=== PATIENT | male | born 1970 | race Caucasian/White ===

== ENCOUNTER 2019-01-18 13:35 | Emergency (ER) | payer SELFPAY ==
--- NOTE | 2019-01-18 15:00 | EDPHYS ---
Physician Documentation [facility] Name: Zenon Liu Age: 48 yrs Sex: Male : 1970 Arrival Date: 01/18/2019 Time: 13:35 Bed 15 Private MD: ED Physician Jason Wharton HPI: 01/18 14:53 This 48 yrs old Male presents to ER via Ambulatory with complaints of Sore cp Throat. 14:53 The patient presents with sore throat. The patient describes throat pain as constant. cp Onset: The symptoms/episode began/occurred 2 day(s) ago. 14:53 Associated signs and symptoms: Pertinent positives: cough, Pertinent negatives cp diarrhea, earache, fever, flu-like symptoms, headache, vomiting. Historical: - Allergies: 13:43 No Known Allergies; aa5 - Home Meds: 13:43 None [Active]; aa5 - PMHx: 13:43 Hypertension; aa5 - PSHx: 13:43 None; aa5 - Immunization history:: Flu vaccine is not up to date. - Social history:: Smoking status: Patient uses tobacco products, smokes one-half pack cigarettes per day. - Ebola Screening: : No symptoms or risks identified at this time. ROS: 14:54 Constitutional: Negative for body aches, chills, fever, poor PO intake. cp 14:54 Eyes: Negative for injury, pain, redness, and discharge. cp 14:54 ENT: Positive for sore throat, Negative for drainage from ear(s), ear pain, difficulty swallowing, difficulty handling secretions. 14:54 Neck: Negative for pain with movement, pain at rest, stiffness. 14:54 Cardiovascular: Negative for chest pain. 14:54 Respiratory: Positive for cough, Negative for wheezing. 14:54 Abdomen/GI: Negative for abdominal pain, vomiting, diarrhea, constipation. 14:54 Skin: Negative for cellulitis, rash. 14:54 Neuro: Negative for altered mental status, headache. 14:54 All other systems are negative. Exam: 14:54 Head/Face: Normocephalic, atraumatic. cp 14:54 Constitutional: The patient appears in no acute distress, alert, awake, non-toxic, well developed, well nourished. 14:54 Eyes: Periorbital structures: appear normal, Conjunctiva: normal, no exudate, no injection, Lids and lashes: appear normal, bilaterally. 14:54 ENT: External ear(s): are unremarkable, Ear canal(s): are normal, clear, TM's: bulging, is not appreciated, bilaterally, dullness, bilaterally, erythema, is not appreciated, bilaterally, Nose: is normal, Mouth: Lips: moist, Oral mucosa: pink and intact, moist, abscess, is not appreciated, drooling, is not appreciated, Posterior pharynx: Airway: no evidence of obstruction, patent, Tonsils: with erythema, no enlargement, Uvula: edematous, erythema, swelling, that is mild, erythema, that is marked, exudate, that is mild, Voice: is hoarse. 14:54 Neck: ROM/movement: is normal, is supple, no range of motions limitations, no meningismus, no nuchal rigidity. 14:54 Chest/axilla: Inspection: normal. 14:54 Cardiovascular: Rate: normal. 14:54 Respiratory: the patient does not display signs of respiratory distress, Respirations: normal. Vital Signs: 13:43 BP 180 / 106; Pulse 74; Resp 18 S; Temp 98.2(TE); Pulse Ox 98% on R/A; Weight 88.45 kg aa5 (R); Height 5 ft. 11 in. (180.34 cm) (R); Pain 6/10; 13:43 Body Mass Index 27.20 (88.45 kg, 180.34 cm) aa5 MDM: 14:39 Patient medically screened. 14:59 Data reviewed: vital signs, nurses notes, lab test result(s), and as a result, I will cp discharge patient. 14:59 Counseling: I had a detailed discussion with the patient and/or guardian regarding: the cp historical points, exam findings, and any diagnostic results supporting the discharge/admit diagnosis, the presence of at least one elevated blood pressure reading (>120/80) during this emergency department visit, lab results, the need for outpatient follow up, a family practitioner, to return to the emergency department if symptoms worsen or persist or if there are any questions or concerns that arise at home. Response to treatment: the patient's symptoms have mildly improved after treatment. 01/18 14:23 Order name: Strep jl7 01/18 14:59 Order name: Throat Culture EDOR Administered Medications: 15:00 Drug: GI Cocktail without - (Maalox Suspension 30 ml, Lidocaine Liquid 2 % 15 jl7 ml) Route: PO; 15:15 Follow up: Response: No adverse reaction; Pain is decreased jl7 15:05 Drug: Augmentin 875 mg Route: PO; jl7 15:15 Follow up: Response: No adverse reaction jl7 Disposition: 01/19 09:11 Co-signature as Attending Physician, Jason Wharton MD I agree with the assessment and sheeba plan of care. Disposition: 01/18/19 14:59 Discharged to Home. Impression: Acute pharyngitis - uvulitis. - Condition is Stable. - Discharge Instructions: Uvulitis. - Prescriptions for Augmentin 875- 125 mg Oral Tablet - take 1 tablet by ORAL route every 12 hours for 10 days; 20 tablet. Ibuprofen 800 mg Oral Tablet - take 1 tablet by ORAL route every 8 hours As needed take with food; 30 tablet. - Medication Reconciliation Form, Thank You Letter, Antibiotic Education, Prescription Opioid Use, Work release form form. - Follow up: Private Physician; When: 2 - 3 days; Reason: Worsening of condition. - Problem is new. - Symptoms have improved. Signatures: Dispatcher [employer] [facility] Jason Wharton MD MD cha Calderon, Audri, RN RN aa5 Jason Jackson PA PA cp Leal, Jahala RN RN jl7 Corrections: (The following items were deleted from the chart) 01/18 15:16 14:59 01/18/2019 14:59 Discharged to Home. Impression: Acute pharyngitis - uvulitis. jl7 Condition is Stable. Forms are Medication Reconciliation Form, Thank You Letter, Antibiotic Education, Prescription Opioid Use. Follow up: Private Physician; When: 2 - 3 days; Reason: Worsening of condition. Problem is new. Symptoms have improved. cp
--- NOTE | 2019-01-18 15:00 | ER ---
Nurse's Notes [facility] Name: Zenon Liu Age: 48 yrs Sex: Male : 1970 Arrival Date: 01/18/2019 Time: 13:35 Bed 15 Private MD: Diagnosis: Acute pharyngitis-uvulitis Presentation: 01/18 13:42 Presenting complaint: Patient states: sore throat that began Saturday. When asked about aa5 taking blood pressure medication pt states "I've been out of my medication". Transition of care: patient was not received from another setting of care. Onset of symptoms was January 2019. Risk Assessment: Do you want to hurt yourself or someone else? Patient reports no desire to harm self or others. Initial Sepsis Screen: Does the patient meet any 2 criteria? No. Patient's initial sepsis screen is negative. Does the patient have a suspected source of infection? No. Patient's initial sepsis screen is negative. Care prior to arrival: None. 13:42 Method Of Arrival: Ambulatory aa5 13:42 Acuity: JULIAN 4 aa5 Historical: - Allergies: 13:43 No Known Allergies; aa5 - Home Meds: 13:43 None [Active]; aa5 - PMHx: 13:43 Hypertension; aa5 - PSHx: 13:43 None; aa5 - Immunization history:: Flu vaccine is not up to date. - Social history:: Smoking status: Patient uses tobacco products, smokes one-half pack cigarettes per day. - Ebola Screening: : No symptoms or risks identified at this time. Screenin:25 Abuse screen: Denies threats or abuse. Denies injuries from another. Nutritional jl7 screening: No deficits noted. Tuberculosis screening: No symptoms or risk factors identified. Fall Risk None identified. Assessment: 14:25 General: Appears in no apparent distress. uncomfortable, Behavior is calm, cooperative, jl7 appropriate for age. Pain: Complains of pain in sore throat. Neuro: Level of Consciousness is awake, alert, obeys commands, Oriented to person, place, time, situation. Cardiovascular: Patient's skin is warm and dry. Respiratory: Airway is patent Respiratory effort is even, unlabored, Respiratory pattern is regular, symmetrical, Breath sounds are clear bilaterally. EENT: Throat is reddened has patchy exudate. Derm: Skin is pink, warm \\T\\ dry. Vital Signs: 13:43 BP 180 / 106; Pulse 74; Resp 18 S; Temp 98.2(TE); Pulse Ox 98% on R/A; Weight 88.45 kg aa5 (R); Height 5 ft. 11 in. (180.34 cm) (R); Pain 6/10; 13:43 Body Mass Index 27.20 (88.45 kg, 180.34 cm) aa5 ED Course: 13:35 Patient arrived in ED. as 13:42 Triage completed. aa5 13:42 Arm band placed on. aa5 14:23 Jose Zacarias, RN is Primary Nurse. jl7 14:25 Patient has correct armband on for positive identification. Bed in low position. Call jl7 light in reach. Side rails up X 1. 14:25 Strep swab sent to lab. jl7 14:39 Jason Jackson PA is PHCP. cp 14:39 Jason Wharton MD is Attending Physician. cp 15:15 No provider procedures requiring assistance completed. Patient did not have IV access jl7 during this emergency room visit. Administered Medications: 15:00 Drug: GI Cocktail without - (Maalox Suspension 30 ml, Lidocaine Liquid 2 % 15 jl7 ml) Route: PO; 15:15 Follow up: Response: No adverse reaction; Pain is decreased jl7 15:05 Drug: Augmentin 875 mg Route: PO; jl7 15:15 Follow up: Response: No adverse reaction jl7 Outcome: 14:59 Discharge ordered by MD. cp 15:15 Discharged to home ambulatory. jl7 15:15 Condition: stable 15:15 Discharge instructions given to patient, family, Instructed on discharge instructions, follow up and referral plans. medication usage, Demonstrated understanding of instructions, follow-up care, medications, Prescriptions given X 2. 15:16 Patient left the ED. jl7 Signatures: Anayeli Lane Audri RN RN aa5 Jason Jackson PA PA cp Jose Zacarias RN RN jl7 Corrections: (The following items were deleted from the chart) 13:44 13:42 Presenting complaint: Patient states: sore throat that began Saturday aa5 aa5
[2019-01-18] MEDS ORDERED: LIDOCAINE VISCOUS 2% SOLN 15 ML UDC ONE (15:09)
[2019-01-18] MEDS ORDERED: AMOX/K CLAV 875 MG TAB ONE (15:10)
== END 2019-01-18 15:16 | disposition home or self-care (01) ==
LOC: ER 13:35
DX: K12.2 Cellulitis and abscess of mouth (principal); I10 Essential (primary) hypertension; F17.210 Nicotine dependence, cigarettes, uncomplicated
CPT/HCPCS: 87070; 87081; 99283

== ENCOUNTER 2019-03-04 06:17 | Emergency (ER) | payer SELFPAY ==
--- NOTE | 2019-03-04 07:18 | EDPHYS ---
Physician Documentation [facility] Name: Zenon Liu Age: 48 yrs Sex: Male : 1970 Arrival Date: 03/04/2019 Time: 06:20 Bed 6 Private MD: DEYA Physician Jason Wharton HPI: 03/04 07:08 This 48 yrs old Male presents to ER via Ambulatory with complaints of Facial sheeba Swelling, Toothache. 07:08 The patient presents with broken tooth/teeth, lost tooth/teeth, pain, redness, sheeba swelling. The problem is located in the right buccal mucosa and upper right third molar (#1). Onset: The symptoms/episode began/occurred 1 week(s) ago. Duration: The symptoms are continuous, and are steadily getting worse. Modifying factors: The symptoms are alleviated by nothing, the symptoms are aggravated by chewing, talking. Associated signs and symptoms: The patient has no apparent associated signs or symptoms. Severity of symptoms: At their worst the symptoms were mild, in the emergency department the symptoms are unchanged. The patient has experienced similar episodes in the past, several times. Historical: - Allergies: 06:32 No Known Allergies; lp1 - Home Meds: 06:32 None [Active]; lp1 - PMHx: 06:32 Hypertension; lp1 - PSHx: 06:32 None; lp1 - Immunization history:: Adult Immunizations up to date. - Social history:: Smoking status: Patient uses tobacco products, smokes one pack cigarettes per day. - Ebola Screening: : No symptoms or risks identified at this time. - Family history:: not pertinent. ROS: 07:08 Constitutional: Negative for fever, chills, and weight loss, Eyes: Negative for injury, sheeba pain, redness, and discharge, Neck: Negative for injury, pain, and swelling, Cardiovascular: Negative for chest pain, palpitations, and edema, Respiratory: Negative for shortness of breath, cough, wheezing, and pleuritic chest pain, Abdomen/GI: Negative for abdominal pain, nausea, vomiting, diarrhea, and constipation, Back: Negative for injury and pain, : Negative for injury, bleeding, discharge, and swelling, MS/Extremity: Negative for injury and deformity, Skin: Negative for injury, rash, and discoloration, Neuro: Negative for headache, weakness, numbness, tingling, and seizure, Psych: Negative for depression, anxiety, suicide ideation, homicidal ideation, and hallucinations, Allergy/Immunology: Negative for hives, rash, and allergies, Endocrine: Negative for neck swelling, polydipsia, polyuria, polyphagia, and marked weight changes, Hematologic/Lymphatic: Negative for swollen nodes, abnormal bleeding, and unusual bruising. 07:08 ENT: Positive for dental pain, Teeth pain Exam: 07:08 Constitutional: This is a well developed, well nourished patient who is awake, alert, sheeba and in no acute distress. Eyes: Pupils equal round and reactive to light, extra-ocular motions intact. Lids and lashes normal. Conjunctiva and sclera are non-icteric and not injected. Cornea within normal limits. Periorbital areas with no swelling, redness, or edema. ENT: Nares patent. No nasal discharge, no septal abnormalities noted. Tympanic membranes are normal and external auditory canals are clear. Oropharynx with no redness, swelling, or masses, exudates, or evidence of obstruction, uvula midline. Mucous membranes moist. Neck: Trachea midline, no thyromegaly or masses palpated, and no cervical lymphadenopathy. Supple, full range of motion without nuchal rigidity, or vertebral point tenderness. No Meningismus. Chest/axilla: Normal chest wall appearance and motion. Nontender with no deformity. No lesions are appreciated. Cardiovascular: Regular rate and rhythm with a normal S1 and S2. No gallops, murmurs, or rubs. Normal PMI, no JVD. No pulse deficits. Respiratory: Lungs have equal breath sounds bilaterally, clear to auscultation and percussion. No rales, rhonchi or wheezes noted. No increased work of breathing, no retractions or nasal flaring. Abdomen/GI: Soft, non-tender, with normal bowel sounds. No distension or tympany. No guarding or rebound. No evidence of tenderness throughout. Back: No spinal tenderness. No costovertebral tenderness. Full range of motion. Skin: Warm, dry with normal turgor. Normal color with no rashes, no lesions, and no evidence of cellulitis. MS/ Extremity: Pulses equal, no cyanosis. Neurovascular intact. Full, normal range of motion. Neuro: Awake and alert, GCS 15, oriented to person, place, time, and situation. Cranial nerves II-XII grossly intact. Motor strength 5/5 in all extremities. Sensory grossly intact. Cerebellar exam normal. Normal gait. Psych: Awake, alert, with orientation to person, place and time. Behavior, mood, and affect are within normal limits. 07:08 Head/face: Noted is erythema, swelling, tenderness, of the upper right third molar and upper right second molar. Vital Signs: 06:30 BP 172 / 112; Pulse 84; Resp 18; Temp 97.6(O); Pulse Ox 98% on R/A; Weight 86.18 kg; lp1 Height 5 ft. 11 in. (180.34 cm); Pain 9/10; 07:20 BP 167 / 89; Pulse 72; Resp 17; Pulse Ox 98% on R/A; Pain 7/10; sg 06:30 Body Mass Index 26.50 (86.18 kg, 180.34 cm) lp1 MDM: 06:32 Patient medically screened. [facility] 07:12 Data reviewed: vital signs, nurses notes. [facility] Administered Medications: 07:14 Drug: Clindamycin 300 mg Route: PO; 07:20 Follow up: Response: No adverse reaction 07:14 Drug: [place] 10 mg-325 mg 1 tabs Route: PO; sg 07:20 Follow up: Response: No adverse reaction Disposition: 03/04/19 07:17 Discharged to Home. Impression: Dental caries, Dental caries, unspecified. - Condition is Stable. - Discharge Instructions: Dental Abscess, Dental Caries, Adult, Dental Pain, Dental Pain, [id number]. - Prescriptions for Clindamycin HCl 300 mg Oral Capsule - take 1 capsule by ORAL route every 6 hours for 10 days; 40 capsule. Tylenol- Codeine #3 300-30 mg Oral Tablet - take 2 tablet by ORAL route every 6 hours As needed; 30 tablet. - Work release form, Medication Reconciliation Form, Thank You Letter, Antibiotic Education, Prescription Opioid Use form. - Follow up: Private Physician; When: 2 - 3 days; Reason: Recheck today's complaints, Continuance of care, Re-evaluation by your physician. - Problem is new. - Symptoms have improved. Signatures: Tadeo Ngo RN RN Jason Wharton MD MD cha Pena, Laura, RN RN lp1 Corrections: (The following items were deleted from the chart) 07:29 07:17 03/04/2019 07:17 Discharged to Home. Impression: Dental caries; Dental caries, sg unspecified. Condition is Stable. Forms are Work release form, Medication Reconciliation Form, Thank You Letter, Antibiotic Education, Prescription Opioid Use. Follow up: Private Physician; When: 2 - 3 days; Reason: Recheck today's complaints, Continuance of care, Re-evaluation by your physician. Problem is new. Symptoms have improved. sheeba
--- NOTE | 2019-03-04 07:18 | ER ---
Nurse's Notes [facility] Name: Zenon Liu Age: 48 yrs Sex: Male : 1970 Arrival Date: 03/04/2019 Time: 06:20 Bed 6 Private MD: Diagnosis: Dental caries;Dental caries, unspecified Presentation: 03/04 06:29 Presenting complaint: Patient states: States waking up with pain to right side of face, lp1 facial swelling related to tooth in right upper mouth. Transition of care: patient was not received from another setting of care. Onset of symptoms was March 04, 2019. Risk Assessment: Do you want to hurt yourself or someone else? Patient reports no desire to harm self or others. Initial Sepsis Screen: Does the patient meet any 2 criteria? No. Patient's initial sepsis screen is negative. Does the patient have a suspected source of infection? No. Patient's initial sepsis screen is negative. Care prior to arrival: None. 06:29 Method Of Arrival: Ambulatory lp1 06:29 Acuity: JULIAN 4 lp1 Triage Assessment: 06:34 EENT: Reports pain in right buccal mucosa. lp1 Historical: - Allergies: 06:32 No Known Allergies; lp1 - Home Meds: 06:32 None [Active]; lp1 - PMHx: 06:32 Hypertension; lp1 - PSHx: 06:32 None; lp1 - Immunization history:: Adult Immunizations up to date. - Social history:: Smoking status: Patient uses tobacco products, smokes one pack cigarettes per day. - Ebola Screening: : No symptoms or risks identified at this time. - Family history:: not pertinent. Screenin:33 Abuse screen: Denies threats or abuse. Denies injuries from another. Nutritional lp1 screening: No deficits noted. Tuberculosis screening: No symptoms or risk factors identified. Fall Risk None identified. Assessment: 06:32 General: Appears uncomfortable, Behavior is appropriate for age. Pain: Complains of lp1 pain in mouth Pain currently is 9 out of 10 on a pain scale. Neuro: No deficits noted. Cardiovascular: No deficits noted. Respiratory: No deficits noted. GI: No deficits noted. : No deficits noted. EENT: Poor dentition noted. Dental caries noted in upper right third molar (#1) swelling to right side of face noted. Derm: No deficits noted. Musculoskeletal: No deficits noted. Vital Signs: 06:30 BP 172 / 112; Pulse 84; Resp 18; Temp 97.6(O); Pulse Ox 98% on R/A; Weight 86.18 kg; lp1 Height 5 ft. 11 in. (180.34 cm); Pain 9/10; 07:20 BP 167 / 89; Pulse 72; Resp 17; Pulse Ox 98% on R/A; Pain 7/10; sg 06:30 Body Mass Index 26.50 (86.18 kg, 180.34 cm) lp1 ED Course: 06:20 Patient arrived in ED. am2 06:28 Angela Mortensen, RN is Primary Nurse. lp1 06:30 Triage completed. lp1 06:31 Arm band placed on left wrist. lp1 06:32 Jason Wharton MD is Attending Physician. [facility] 06:34 Patient has correct armband on for positive identification. lp1 07:17 No provider procedures requiring assistance completed. Patient did not have IV access sg during this emergency room visit. Administered Medications: 07:14 Drug: Clindamycin 300 mg Route: PO; sg 07:20 Follow up: Response: No adverse reaction sg 07:14 Drug: [place] 10 mg-325 mg 1 tabs Route: PO; sg 07:20 Follow up: Response: No adverse reaction sg Outcome: 07:17 Discharge ordered by . [facility] 07:25 Discharged to home ambulatory, with family. sg 07:25 Condition: good 07:25 Discharge instructions given to patient, family, Instructed on discharge instructions, follow up and referral plans. no drinking with medication, no driving heavy equipment, medication usage, safety practices, Demonstrated understanding of instructions, follow-up care, medications, Prescriptions given X 2. 07:29 Patient left the ED. sg Signatures: Tadeo Ngo RN RN Jason Mckeon MD MD cha Pena, Laura, RN RN lp1 Tonya Molina am
[2019-03-04] MEDS ORDERED: HYDROCODONE/APAP 10/325 TAB ONE (07:26)
[2019-03-04] MEDS ORDERED: CLINDAMYCIN HCL 150 MG CAP ONE (07:26)
== END 2019-03-04 07:29 | disposition home or self-care (01) ==
LOC: ER 06:17
DX: K02.9 Dental caries, unspecified (principal); I10 Essential (primary) hypertension; F17.210 Nicotine dependence, cigarettes, uncomplicated
CPT/HCPCS: 99283